=== PATIENT | female | born 1955 | race Caucasian/White ===

== ENCOUNTER 2017-11-27 19:47 | Emergency (ER) | payer SELFPAY ==
[~2017-11-27] VITALS: Ht 162.6 cm; Wt 54.9 kg
[2017-11-27] MEDS ORDERED: LORAZEPAM 2 MG/1 ML VIAL IV ONE (20:15)
[2017-11-27] MEDS ORDERED: PROMETHAZINE HCL 25 MG/1 ML VIAL IM ONE (20:15)
[2017-11-27] MEDS ORDERED: HYDROMORPHONE 1 MG/1 ML DISP.SYRIN IM ONE (20:15)
[2017-11-27] MEDS ORDERED: HYDROMORPHONE 2 MG/1 ML DISP.SYRIN ONE (20:21)
[2017-11-27] MEDS ORDERED: PROMETHAZINE HCL 25 MG/1 ML VIAL ONE (20:21)
--- NOTE | 2017-11-27 20:54 | NUR ---
Patient discharged to home in stable conditon. Written and verbal after care instructions given. Patient verbalizes understanding of instructions.
== END 2017-11-27 21:04 | disposition home or self-care (01) ==
LOC: ER 19:47 → EDBD 19:47 → ER 21:04
DX: S42.302A Unspecified fracture of shaft of humerus, left arm, initial encounter for closed fracture (principal); W18.30XA Fall on same level, unspecified, initial encounter; Y93.89 Activity, other specified; Y92.89 Other specified places as the place of occurrence of the external cause; Y99.8 Other external cause status
CPT/HCPCS: 73060; A4663; J1170; J2550